=== PATIENT | male | born 1950 | race Caucasian/White ===

== ENCOUNTER 2018-12-16 10:39 | Inpatient (IN) | payer MEDICARE ==
[~2018-12-16] VITALS: Ht 172.7 cm; Wt 78.6 kg
[~2018-12-16 10:39] MED LIST: ASPI81EC; ASPI81EC PO; ATOR40TA PO; ATOR80 PO; BACL10 PO; CALCAVITDA PO; CALGLU500 PO; CARB200; CLOP75 PO; DOC250 PO; DOCU100; DOCU100 PO; FERR160 PO; FERR325; FERR325 PO; FURO40; FURO40 PO; HYDACE5; HYDACE5 PO; IBUP800; LISI5; LISI5 PO; LORA1 PO; MAGCHL64ER PO; MAGCIT300 PO; METO25ER; METO25ER PO; METO50ER PO; MULVITMINF; OMEP20ER; PHENO60 PO; POTA10T PO; POTA8; TRAZ100; WARF5; WARF7.5
[2018-12-16 11:13] LABS: Hematocrit 39.1 % (37.0-53.0); Hemoglobin 12.5 g/dL (13.5-17.5); Mean Corpuscular HGB 25.4 pg (26.0-34.0); Mean Corpuscular Volume 80 fL (80-100); Mean Platelet Volume 10.2 fL (9.1-12.4); Platelet Count 129 K/mm3 (150-400); RDW Coefficient Variation 16.2 % (11.7-14.2); RDW Standard Deviation 46.9 fL (35.1-46.3); Red Blood Cell Count 4.92 M/mm3 (4.30-5.90); White Blood Cell Count 4.19 K/mm3 (4.00-11.30)
[2018-12-16 11:27] LABS: International Normalized Ratio 1.59; Prothrombin Time Results 16.2 Sec (9.7-11.5)
[2018-12-16 11:28] LABS: Alanine Aminotransfer (ALT/SGP 23 U/L (12-78); Albumin, Blood 3.3 g/dL (3.4-5.0); Alk Phos 135 U/L (50-136); Anion Gap 4 mmol/L (6-16); Aspartate Aminotrans (AST/SGOT 21 U/L (12-37); Bilirubin, Total 0.3 mg/dL (0.1-1.0); Blood Urea Nitrogen 14 mg/dL (8-24); CHOL/HDL RATIO 4.3; CO2, Blood 28 mmol/L (21-32); Calcium, Blood 8.2 mg/dL (8.5-10.1); Chloride, Blood 107 mmol/L (98-108); Cholesterol 149 mg/dL (50-200); Globulin, Blood 3.2 g/dL (2.2-4.0); Glomerular Filtration Rate >60 (60-); Glucose, Blood 110 mg/dL (70-99); HDL Cholesterol 35 mg/dL (>39); LDL/HDL RATIO 2.2; Low Density Lipoprotein Chol 77 mg/dL (0-110); Magnesium, Blood 2.2 mg/dL (1.6-2.4); Sodium, Blood 139 mmol/L (136-145); Total Protein, Blood 6.5 g/dL (6.4-8.2); Triglycerides 187 mg/dL (30-160); Troponin I 0.029 ng/mL (0.000-0.040); Very Low Density Lipoprot Chol 37 mg/dL (6-32)
--- NOTE | 2018-12-16 13:09 | NUR ---
PATIENT ARRIVED TO ROOM ICU 6, AT 12:15 HOURS VIA BED FROM THE [facility] AFTER HEART CATHETERIZATION, NO STENTS PLACED, PATIENT WILL BE HERE UNTIL TOMORROW AND THEN TRANSFER TO [facility] PER DR. KIM, PATIENT HAS A HISTORY OF STROKE AND HIS LEFT SIDE IS PARALYZED, UNABLE TO MOVE ARM OR LEG ON LEFT, RIGHT GROIN SIDE HAS INCISION/PUNCTURE FROM HEART CATHETERIZATION, CHG TEGADERM COVERS THE SITE, SOFT, NONTENDER, NO HEMATOMA NOTED, PATIENT C/O ACHE AT THE SITE, BUT DENIES PAIN MEDICATION, PLACED ON MONITOR, HEPARIN DRIP WAS STARTED ORDERED, PATIENT IS AWAKE, ALERT AND ORIENTED, LUNG SOUNDS CLEAR, AFEBRILE, NSR, BOWEL TONES HYPOACTIVE, PATIENT HAD SOME SIPS OF WATER, NO PROBLEM SWALLOWING, PER DR. KIM MAY HAVE CARDIAC DIET, PATIENT TO LIE FLAT FOR 4 HOURS, PEDAL PULSES ARE PRESENT AND PALPABLE, FAMILY AT BEDSIDE, PATIENT AND FAMILY WERE ORIENTED TO ROOM AND NEW ENVIRONMENT, DR. KIM AT BEDSIDE TO SEE PATIENT AND SPEAK WITH FAMILY, CALL LIGHT IN REACH, WILL CONTINUE TO MONITOR.
--- NOTE | 2018-12-16 17:30 | NUR ---
SHIFT SUMMARY NOTE: PATIENT IS AWAKE AND ALERT AND ORIENTED, SITTING UP IN BED EATING DINNER, RIGHT GROIN SITE SHOWS NO BLEEDING, SOFT, NONTENDER TO PALPATION, COVERED WITH CHG TEGADERM, ANGIOSEAL IN PLACE, PATIENT CONTINUES ON HEPARIN GTT AT 13 UNITS AT THIS TIME, SLEPT MOST OF THE AFTERNOON, VSS, AFEBRILE, DENIES PAIN, PATIENT HAS A HISTORY OF STROKE AND HIS LEFT SIDE IS PARALYZED, PENDING TRANSFER TO [facility], FAMILY AT BEDSIDE, CALL LIGHT IN REACH, WILL CONTINUE TO MONITOR.
--- NOTE | 2018-12-16 20:31 | NUR ---
PT RESTING IN BED. A/O X4. DENIES CP, PAIN, PRESSURE, N/V, SOB, AND DIZZINESS. GOT PT TO SIDE OF BED TO VOID AND STOOD WITH 1 PERSON ASSIST. L SIDE IS PARALYZED FROM PREVIOUS STROKE. ALSO HAS FACIAL DROOP WELL. R GROIN ACCESS SITE IS STABLE, NO SIGN OF BLEEDING, SOFT AND NON TENDER. HAS CLEAR OCCLUSIVE DRESSING INTACT. HAS HEPARIN GTT RUNNING. EDUCATED ABOUT TOBACCO CESSATION. PT IS ASKING IF HIS FAMILY CAN BRING HIS CHEW IN. CONTINUE TO REINFORCE NO NICOTINE CONSUMPTION DUE TO CONDITION OF HIS VESSELS. PT STATES HE IS GOING TO CONTINUE USING TOBACCO WHEN HE LEAVES HERE. NO SIGN OF DISTRESS. CALL LIGHT IN REACH.
--- NOTE | 2018-12-17 06:46 | NUR ---
PT RESTING IN BED. A/O X4. NO CHANGES DURING THE NIGHT. CALL LIGHT IN REACH, NO SIGN OF DISTRESS.
--- NOTE | 2018-12-17 07:10 | NUR ---
START OF SHIFT NOTE: PATIENT IS AWAKE ALERT AND ORIENTED, NSR, LUNGS SOUNDS DIMINISHED THROUGHOUT, BT'S IN ALL FOUR QUADRANTS, USES URINAL APPROPRIATELY, LEFT SIDED PARALYSIS D/T HISTORY OF STROKE, AWAITING TRANSFER TO [facility] IN [place], [facility] INFURING AT 17 UNITS, MANAGED BY PHARMACY, CALL LIGHT IN REACH, WILL CONTINUE TO MONITOR.
--- NOTE | 2018-12-17 08:53 | NUR ---
PATIENT TOOK AM MEDICATION WITHOUT ANY PROBLEMS SWALLOWING, FAMILY AT BEDSIDE, CALL LIGHT IN REACH, WILL CONTINUE TO MONITOR.
--- NOTE | 2018-12-17 10:07 | NUR ---
REPORT CALLED TO KARIN ACUÑA, AT [facility], EMT'S WILL PROVIDE TRANSPORTATION FOR PATIENT, TO ARRIVE HERE IN ICU SHORTLY.
--- NOTE | 2018-12-17 10:55 | NUR ---
PATIENT LEFT TO [facility] VIA EMS AT 10:52.
== END 2018-12-17 10:52 | disposition short-term general hospital (02) | DRG 287 ==
LOC: ER 10:39 → ICUW 10:48 → ICUE 11:07
PROVIDERS: Emergency Medicine; ADMIT Internal Medicine Interventional Cardiology
PROC: B2111ZZ Fluoroscopy of Multiple Coronary Arteries using Low Osmolar Contrast (ICD-10-PCS; principal; 2018-12-16)
PROC: B2131ZZ Fluoroscopy of Multiple Coronary Artery Bypass Grafts using Low Osmolar Contrast (ICD-10-PCS; 2018-12-16)
PROC: B3101ZZ Fluoroscopy of Thoracic Aorta using Low Osmolar Contrast (ICD-10-PCS; 2018-12-16)
DX: I25.700 Atherosclerosis of coronary artery bypass graft(s), unspecified, with unstable angina pectoris (principal); E78.00 Pure hypercholesterolemia, unspecified; Z95.5 Presence of coronary angioplasty implant and graft; Z72.3 Lack of physical exercise; Z87.891 Personal history of nicotine dependence
CPT/HCPCS: 36415; 80053; 80061; 83735; 84484; 85027; 85347; 85610; 85730; 86850; 86900; 86901; 93005; 93010; 93455; 96374; 96375; 99152; 99153; 99285-25; C1760; C1769; C1894; J1200; J1644; J1720; J2250; J3010; J3490; J7030; Q9967

== ENCOUNTER 2019-03-23 20:35 | Emergency (ER) | payer OTHER, MEDICARE ==
[~2019-03-23] VITALS: Ht 172.7 cm; Wt 80.3 kg
[2019-03-23 20:55] LABS: BASOPHILS ABSOLUTE AUTO 0.07 K/mm3 (0.00-0.23); BASOPHILS PERCENT AUTO 1 % (0-2); EOSINOPHILS ABSOLUTE AUTO 0.27 K/mm3 (0.00-0.68); EOSINOPHILS PERCENT AUTO 5 % (0-6); Hematocrit 35.8 % (37.0-53.0); Hemoglobin 11.2 g/dL (13.5-17.5); IMMATURE GRAN ABSOLUTE AUTO 0.02 K/mm3 (0.00-0.10); IMMATURE GRAN PERCENT AUTO 0 % (0-1); LYMPHOCYTES ABSOLUTE AUTO 0.96 K/mm3 (0.84-5.20); LYMPHOCYTES PERCENT AUTO 16 % (21-46); MONOCYTES ABSOLUTE AUTO 0.51 K/mm3 (0.16-1.47); MONOCYTES PERCENT AUTO 9 % (4-13); Mean Corpuscular HGB Conc 31.3 g/dL (31.5-36.5); Mean Corpuscular Volume 77 fL (80-100); Mean Platelet Volume 10.1 fL (9.1-12.4); NEUTROPHILS ABSOLUTE AUTO 4.03 K/mm3 (1.96-9.15); NEUTROPHILS PERCENT AUTO 69 % (41-73); Platelet Count 158 K/mm3 (150-400); RDW Coefficient Variation 15.9 % (11.7-14.2); Red Blood Cell Count 4.66 M/mm3 (4.30-5.90); White Blood Cell Count 5.86 K/mm3 (4.00-11.30)
[2019-03-23] MEDS ORDERED: Isosorbide Mono30 MG PO (20:55)
[2019-03-23] MEDS ORDERED: MAGNESIUM PO (20:56)
[2019-03-23] MEDS ORDERED: WARF1 PO (21:00)
[2019-03-23] MEDS ORDERED: LORA.5 PO (21:03)
[2019-03-23 21:13] LABS: Anion Gap 7 mmol/L (6-16); Blood Urea Nitrogen 10 mg/dL (8-24); Bun/Creatinine Ratio 9.9 (12.0-20.0); CO2, Blood 25 mmol/L (21-32); Calcium, Blood 8.4 mg/dL (8.5-10.1); Chloride, Blood 105 mmol/L (98-108); Creatinine, Blood 1.01 mg/dL (0.60-1.20); Glomerular Filtration Rate >60 (60-); Glucose, Blood 104 mg/dL (70-99); Potassium, Blood 4.2 mmol/L (3.5-5.5); Sodium, Blood 137 mmol/L (136-145); Troponin I <0.015 ng/mL (0.000-0.040)
== END 2019-03-23 22:22 | disposition home or self-care (01) ==
LOC: ER 20:35
PROVIDERS: Emergency Medicine
DX: F41.9 Anxiety disorder, unspecified (principal); R07.89 Other chest pain; Z86.73 Personal history of transient ischemic attack (TIA), and cerebral infarction without residual deficits; I25.10 Atherosclerotic heart disease of native coronary artery without angina pectoris; Z91.041 Radiographic dye allergy status; Z88.8 Allergy status to other drugs, medicaments and biological substances; Z79.899 Other long term (current) drug therapy; Z79.01 Long term (current) use of anticoagulants; I10 Essential (primary) hypertension; I25.2 Old myocardial infarction; E78.00 Pure hypercholesterolemia, unspecified; Z87.891 Personal history of nicotine dependence
CPT/HCPCS: 36415; 80048; 84484; 85025; 93005; 93010; 99285-25

== ENCOUNTER 2019-08-23 22:56 | Emergency (ER) | payer OTHER, MEDICARE ==
[~2019-08-23] VITALS: Ht 172.7 cm; Wt 79.8 kg
[~2019-08-23 22:56] MED LIST changes: +CALCIUM PO; +Isosorbide Mono30 MG PO; +LORA.5 PO; +MAGNESIUM PO; +WARF1 PO
[2019-08-24] MEDS ORDERED: DOC250 PO (00:31)
[2019-08-24] MEDS ORDERED: METO25ER PO (00:32)
[2019-08-24] MEDS ORDERED: ELIQUIS5 MG PO (00:35)
== END 2019-08-24 00:47 | disposition home or self-care (01) ==
LOC: ER 22:56
DX: T14.8XXA Other injury of unspecified body region, initial encounter (principal); M54.6 Pain in thoracic spine; I10 Essential (primary) hypertension; I25.2 Old myocardial infarction; Z91.041 Radiographic dye allergy status; Z88.8 Allergy status to other drugs, medicaments and biological substances; Z79.899 Other long term (current) drug therapy; Z79.01 Long term (current) use of anticoagulants; Z86.73 Personal history of transient ischemic attack (TIA), and cerebral infarction without residual deficits; Z87.891 Personal history of nicotine dependence; W01.0XXA Fall on same level from slipping, tripping and stumbling without subsequent striking against object, initial encounter
CPT/HCPCS: 70450; 71101; 99284-25

== ENCOUNTER 2020-05-07 15:24 | Emergency (ER) | payer OTHER, MEDICARE ==
[~2020-05-07] VITALS: Ht 172.7 cm; Wt 81.7 kg
[~2020-05-07 15:24] MED LIST changes: +CLOP75; +ELIQUIS5 MG PO; +Norco 5-325 Ta1 EACH PO; +OXYACE7.5T PO
[2020-05-07] MEDS ORDERED: ONDA4ODT MM (16:33)
== END 2020-05-07 16:40 | disposition home or self-care (01) ==
LOC: ER 15:24
DX: S06.9X9A Unspecified intracranial injury with loss of consciousness of unspecified duration, initial encounter (principal); S16.1XXA Strain of muscle, fascia and tendon at neck level, initial encounter; I25.2 Old myocardial infarction; I10 Essential (primary) hypertension; E78.5 Hyperlipidemia, unspecified; Z91.040 Latex allergy status; Z88.8 Allergy status to other drugs, medicaments and biological substances; Z79.899 Other long term (current) drug therapy; Z79.02 Long term (current) use of antithrombotics/antiplatelets; Z86.73 Personal history of transient ischemic attack (TIA), and cerebral infarction without residual deficits; Z95.1 Presence of aortocoronary bypass graft; W17.89XA Other fall from one level to another, initial encounter
CPT/HCPCS: 70450; 72125; 99284-25; L0160

== ENCOUNTER 2022-12-23 10:28 | Day surgery (SDC) | payer OTHER ==
[~2022-12-23] VITALS: Ht 170.2 cm; Wt 90.5 kg
[2022-12-23] VITALS (12 sets, daily range): BP systolic 94–170; BP diastolic 45–94
[~2022-12-23 10:28] MED LIST changes: +B-12500 MC2 PO; -CLOP75; +CYCL10 PO; +ONDA4ODT MM
[2022-12-23] MEDS ORDERED: METO50 PO (11:26)
[2022-12-23] MEDS ORDERED: WARF5 PO (11:29)
[2022-12-23 11:36] LABS: International Normalized Ratio 0.98; Prothrombin Time Results 10.3 Sec (9.7-11.5)
[2022-12-23] MEDS ORDERED: ENOX80I SC (12:47)
--- NOTE | 2022-12-23 13:06 | NUR ---
REMOVED LOVENOX FROM ALLERGY LIST. PATIENT CURRENTLY TAKING LOVENOX PER DR ORDER AND DENIES ALLERGY OR ADVERSE REACTION.
--- NOTE | 2022-12-23 13:48 | NUR ---
HEARING AIDS LEFT AT HOME PER PATIENT. GLASSES STORED IN PATIENT'S PERSONAL BELONGING BAG PER PATIENT.
--- NOTE | 2022-12-23 19:36 | NUR ---
SHIFT SUMMARY PATIENT IS POST-OP DAY 0 OF A LEFT TOTAL KNEE. PATIENT HAS TWO AQUACEL DRESSINGS ON LEFT KNEE/LEG THAT ARE CLEAN DRY INTACT. PATIENT WANTED TO STAND TO VOID BUT WAS UNABLE TO, REPORTED TO CORPORATE AIRCRAFT MECHANIC NURSE. PATIENT TOLERATED JELLO AND CRACKERS WELL. PATIENT DENIED NAUSEA. FAMILY VISITED THROUGHOUT THE DAY. PATIENT IS CURRENTLY LYING IN BED WATCHING TV. CALL LIGHT WITHIN REACH, BED IN LOWEST POSITION.
--- NOTE | 2022-12-23 19:42 | NUR ---
REVIEWED SN DOCUMENTATION.
[2022-12-24 02:11] VITALS: BP 127/57
[2022-12-24 05:49] LABS: BASOPHILS ABSOLUTE AUTO 0.07 K/mm3 (0.00-0.23); BASOPHILS PERCENT AUTO 1 % (0-2); EOSINOPHILS ABSOLUTE AUTO 0.32 K/mm3 (0.00-0.68); EOSINOPHILS PERCENT AUTO 3 % (0-6); Hematocrit 37.6 % (37.0-53.0); IMMATURE GRAN ABSOLUTE AUTO 0.05 K/mm3 (0.00-0.10); IMMATURE GRAN PERCENT AUTO 1 % (0-1); LYMPHOCYTES ABSOLUTE AUTO 0.93 K/mm3 (0.84-5.20); LYMPHOCYTES PERCENT AUTO 10 % (21-46); MONOCYTES ABSOLUTE AUTO 0.78 K/mm3 (0.16-1.47); MONOCYTES PERCENT AUTO 8 % (4-13); Mean Corpuscular HGB 28.5 pg (26.0-34.0); Mean Corpuscular HGB Conc 34.6 g/dL (31.5-36.5); Mean Corpuscular Volume 83 fL (80-100); Mean Platelet Volume 9.3 fL (9.1-12.4); NEUTROPHILS ABSOLUTE AUTO 7.28 K/mm3 (1.96-9.15); NEUTROPHILS PERCENT AUTO 77 % (41-73); Platelet Count 175 K/mm3 (150-400); RDW Coefficient Variation 14.9 % (11.7-14.2); RDW Standard Deviation 45.1 fL (35.1-46.3); Red Blood Cell Count 4.56 M/mm3 (4.30-5.90); White Blood Cell Count 9.43 K/mm3 (4.00-11.30)
--- NOTE | 2022-12-24 05:51 | NUR ---
SHIFT SUMMARY PT IS NOW POST OP DAY 1 W/ HIS TOTAL LEFT KNEE SURGERY ON 12/23/22. HE HAS A HX OF CVA AND HAS A LEFT SIDED DEFICIT. HE HAS MINIMAL MOVEMENT ON HIS LEFT SIDE AND HIS LEFT HAND IS CONTRACTED. HE STATES AT BASELINE HE DOES NOT HAVE FEELING IN HIS LEFT LEG. CAP REFILL IS <3 SEC AND DISTAL PULSES FROM THE SURGERY SITE ARE PALATABLE. HE HAS HAD Q4 FOCUSED ASSESSMENTS AND THE SITE REMAINS W/O ANY BLEEDING, HEMATOMA, SWELLING, OR REDNESS. THERE IS AN AQUACEL DRESSING INTACT AND DRY. HE HAD TO BE MEDICATED A FEW TIMES THIS SHIFT FOR THROBBING 5/10 PAIN. TORADOL AND TYLENOL HAVE BEEN VERY EFFECTIVE FOR THE PT S PAIN. HE HAS BEEN ABLE TO VOID A FEW TIMES THIS SHIFT AND USES THE URINAL AT BEDSIDE. HE HAS BEEN UP NEARLY THE ENTIRE NIGHT BUT HAS NO OTHER COMPLAINTS. BED IS IN LOW, AND CALL LIGHT IS IN REACH. SEE NOTES FOR ANY UPDATES.
[2022-12-24 05:53] LABS: Bun/Creatinine Ratio 12.9 (12.0-20.0); Calcium, Blood 8.3 mg/dL (8.5-10.1); Creatinine, Blood 1.01 mg/dL (0.60-1.20); Potassium, Blood 3.9 mmol/L (3.5-5.5)
[2022-12-24 07:37] VITALS: BP 162/58
--- NOTE | 2022-12-24 10:59 | NUR ---
Pt. is awake in bed and welcomes my visit. Pt. is pleasant, but was a little unsettled by world events after watching the news. Listen with empathy and a calming presence. Pt. verbalized interest in his physical therapy. Normalized the Pt. experience and established rapport. Pt. displayed evidence of trust and a less anxious spirit. Prayed with Pt. Pt. verbalized gratitude for the spiritual care visit.
[2022-12-24] MEDS ORDERED: ENOX80I SC (15:15)
--- NOTE | 2022-12-24 15:43 | NUR ---
DISCHARGE SUMMARY PT A&OX4, VSS/RA, RAHEEM PO, VOIDING WELL, STAND PIVOT WITH HEMIWALKER ( BOUGHT A HEMIWALKER), PAIN MANAGED, IV DC'D. DC INS PROVIDED. PT REP UNDERSTANDING THOSE INSTRUCTIONS INCLUDING FU WITH PCP RE COUMADIN LEVELS (LAB ORDERED FOR 12/26) AND LOVENOX BID (PER [facility]) TILL THERAPEUTIC; PER SULAIMAN @ [facility]: NO CPM IN AREA. HOME HEALTH W/PT BEING ORDERED TODAY BY [facility]. PER RAVEN @ [facility]: NARCOTIC SCRIPT [facility] TO [facility] BY DR DOLAN. LEFT FLOOR VIA WC WITH CADD DRAFTER TO GO HOME WITH , WITH ALL PERSONAL POSSESSIONS INCLUDING DC PACKET, POLAR LOBO, AQUACEL DRESSINGS.
== END 2022-12-24 15:49 | disposition home health service (06) ==
LOC: ORSCMMR 10:28 → ORD 10:30 → ORSCMMR 10:45 → ORD 13:30 → SURS 16:41 → ORSCMMR 12-24 15:49
PROVIDERS: Orthopaedic Surgery
PROC: 8E0Y0CZ Robotic Assisted Procedure of Lower Extremity, Open Approach (ICD-10-PCS; principal; 2022-12-23 13:30)
PROC: 0SRD0JA Replacement of Left Knee Joint with Synthetic Substitute, Uncemented, Open Approach (ICD-10-PCS; principal; 2022-12-23 13:30)
DX: M17.0 Bilateral primary osteoarthritis of knee (principal); Z86.73 Personal history of transient ischemic attack (TIA), and cerebral infarction without residual deficits; Z87.891 Personal history of nicotine dependence; I10 Essential (primary) hypertension; I25.2 Old myocardial infarction; Z79.899 Other long term (current) drug therapy
CPT/HCPCS: 27447; 20985; S2900; 36415; 73560-LT; 80048; 83735; 85025; 85610; 85730; 94760; 97110; 97162; 97530; A9270; C1776; J0171; J0690; J0735; J1100; J1650; J1885; J2250; J2370; J2405; J2704; J2795; J3010; J7120

== ENCOUNTER 2024-05-24 12:21 | Inpatient (IN) | payer OTHER ==
[2024-05-24] VITALS (10 sets, daily range): BP systolic 93–159; BP diastolic 66–99
[~2024-05-24] VITALS: Ht 175.3 cm; Wt 93.2 kg
[~2024-05-24 12:21] MED LIST changes: +ENOX80I SC; +METO50 PO; +WARF5 PO
[2024-05-24] MEDS ORDERED: PredniSONE 20 MG Tab PO ONE (12:55)
[2024-05-24] MEDS ORDERED: Albuterol 2.5 MG/3 ML VIAL INH SCH (12:55)
[2024-05-24] MEDS ORDERED: Ipratropium/Albuterol SulF 2.5-0.5MG/3 ML Amp INH ONE (12:55)
[2024-05-24] MEDS ORDERED: Magnesium Sulf 2 GM/Water 50ML 50 ML IV ONE (13:00)
[2024-05-24 13:11] LABS: BASOPHILS ABSOLUTE AUTO 0.09 K/mm3 (0.00-0.23); BASOPHILS PERCENT AUTO 1 % (0-2); EOSINOPHILS ABSOLUTE AUTO 0.58 K/mm3 (0.00-0.68); EOSINOPHILS PERCENT AUTO 8 % (0-6); Hematocrit 39.3 % (37.0-53.0); IMMATURE GRAN ABSOLUTE AUTO 0.03 K/mm3 (0.00-0.10); IMMATURE GRAN PERCENT AUTO 0 % (0-1); LYMPHOCYTES ABSOLUTE AUTO 0.78 K/mm3 (0.84-5.20); LYMPHOCYTES PERCENT AUTO 11 % (21-46); MONOCYTES ABSOLUTE AUTO 0.53 K/mm3 (0.16-1.47); MONOCYTES PERCENT AUTO 7 % (4-13); Mean Corpuscular HGB 29.3 pg (26.0-34.0); Mean Corpuscular HGB Conc 35.6 g/dL (31.5-36.5); Mean Corpuscular Volume 82 fL (80-100); Mean Platelet Volume 10.7 fL (9.1-12.4); NEUTROPHILS ABSOLUTE AUTO 5.13 K/mm3 (1.96-9.15); NEUTROPHILS PERCENT AUTO 72 % (41-73); Platelet Count 165 K/mm3 (150-400); RDW Coefficient Variation 15.9 % (11.7-14.2); RDW Standard Deviation 47.8 fL (35.1-46.3); Red Blood Cell Count 4.78 M/mm3 (4.30-5.90); White Blood Cell Count 7.14 K/mm3 (4.00-11.30)
[2024-05-24 13:19] LABS: Albumin, Blood 3.2 g/dL (3.4-5.0); Albumin/Globulin Ratio 0.9 (0.8-1.8); Bilirubin, Total 0.5 mg/dL (0.1-1.0); Calcium, Blood 8.7 mg/dL (8.5-10.1); Creatinine, Blood 0.93 mg/dL (0.60-1.20); Globulin, Blood 3.7 g/dL (2.2-4.0); Total Protein, Blood 6.9 g/dL (6.4-8.2)
[2024-05-24] MEDS ORDERED: ALBU90OI INH (13:19)
[2024-05-24] MEDS ORDERED: EZET10 PO (13:20)
[2024-05-24] MEDS ORDERED: IPRAT-ALBUT 0.5-3 ML IH (13:20)
[2024-05-24] MEDS ORDERED: Insulin Regular 100 Unit/ML 1ML Dose IV ONE (13:25)
[2024-05-24] MEDS ORDERED: NITR.4SL SL (13:30)
[2024-05-24] MEDS ORDERED: PHENO30 PO (13:31)
[2024-05-24] MEDS ORDERED: NS 1,000 ML IV SCH (14:15)
[2024-05-24] MEDS ORDERED: Insulin Human Regular 100 UNIT in NS 100 ML IV SCH (14:20)
[2024-05-24 14:45] LABS: International Normalized Ratio 2.99; Prothrombin Time Results 29.5 Sec (9.7-11.5)
[2024-05-24] MEDS ORDERED: Acetaminophen 325 MG TABLET PO PRN (14:55)
[2024-05-24] MEDS ORDERED: Ipratropium/Albuterol SulF 2.5-0.5MG/3 ML Amp INH SCH (14:55)
[2024-05-24] MEDS ORDERED: FLU VACC TS2024-25(6MOS UP)/PF 45 MCG/0.5 ML SYRINGE IM SCH (14:55)
[2024-05-24] MEDS ORDERED: Ondansetron HCl 2 MG / ML 2ML Vial IV PRN (15:00)
[2024-05-24] MEDS ORDERED: Dextrose 50% 50 ML Syringe IV PRN (15:00)
[2024-05-24] MEDS ORDERED: Nitroglycerin 0.4 MG SUBL SL PRN (15:05)
[2024-05-24 15:15] LABS: Glucose, Blood 601 mg/dL (70-99)
--- NOTE | 2024-05-24 17:39 | NUR ---
ARRIVAL TO ICU/SHIFT SUMMARY PT ARRIVES TO ICU FROM ER FOR HYPERGLYCEMIA AT 1615. REPORT FROM SHANTHI FRAZIER. PT ARRIVES c INSULIN GTT AND IVF INFUSING. PT A&OX 4. FOLLOWS COMMANDS. ABLE TO MAKE NEEDS KNOWN. REPORTS FALL LAST NOC, STATES HE HAS BEEN UNABLE TO WALK SINCE THEN D/T WEAKNESS. TYPICALLY AMB c CANE OR WALKER. PT HAS PREVIOUS CVAS c LEFT SIDED DEFICIT. PUREWICK IN PLACE D/T FREQUENT URINATION. PIV X 2. WILL CONTINUE PLAN OF CARE UNTIL REPORT TO ONCOMING NURSE.
[2024-05-24] MEDS ORDERED: CYCL10 PO (17:56)
[2024-05-24 19:35] LABS: Bun/Creatinine Ratio 15.4 (12.0-20.0); Calcium, Blood 8.5 mg/dL (8.5-10.1); Creatinine, Blood 0.84 mg/dL (0.60-1.20); Potassium, Blood 3.5 mmol/L (3.5-5.5)
[2024-05-24] MEDS ORDERED: PHENobarbital 64.8 MG Tab PO SCH (21:00)
[2024-05-24] MEDS ORDERED: Metoprolol Tartrate 50 MG Tab PO SCH (21:00)
[2024-05-24] MEDS ORDERED: Docusate Sodium 100 MG Cap PO SCH (21:00)
--- NOTE | 2024-05-24 22:28 | NUR ---
ASSUMPTION OF CARE PT LYING IN BED IN NO APPARENT DISTRESS, ALERT AND ORIENTEED TO ALL. HR NSR IN THE 90S WITH STABLE BLOOD PRESSURE. BREATHING IS WITHOUT EXTRA EFFORT, SAT 95% ON RA. NO CHEST PAIN OR ACUTE SOB. PT SAYS HE HAS HAD INTERMITTENT SOB OVER LAST MONTH. LUNGS CLEAR BUT DIMINISHED IN BASES. NO ABDOMINAL PAIN. PERIWICK IN PLACE FAILED DURING ASSESSMENT AND WAS REMOVED. PT SAYS HE SHOULD BE ABLE TO USE CALL LIGHT. INSULING INFUSING AT 6 UNITS/HR WITH Q 1 HOUR POC CHECKS PLANNED. NORMAL SALINE INFUSING AT 75 ML/HR. PT CLEANED UP AND NEW LINENS APPLIED. PT LEFT IN ROOM WITH CALL LIGHT NEARBY.
[2024-05-24] MEDS ORDERED: Insulin Glargine-Yfgn 100 Unit/mL 3 ML SYR SC STA (22:51)
[2024-05-25] VITALS (14 sets, daily range): BP systolic 94–157; BP diastolic 46–74
[2024-05-25 04:02] LABS: Calcium, Blood 8.5 mg/dL (8.5-10.1); Creatinine, Blood 0.83 mg/dL (0.60-1.20); Potassium, Blood 2.8 mmol/L (3.5-5.5)
[2024-05-25] MEDS ORDERED: Potassium Chloride 40 MEQ IV ONE (05:55)
[2024-05-25] MEDS ORDERED: Potassium Chl 20MEQ/Water100ML 100 ML IV SCH (06:05)
[2024-05-25] MEDS ORDERED: NS 250 ML IV PRN (07:25)
[2024-05-25] MEDS ORDERED: Insulin Human Lispro 100 Units/ML 3ML Syringe SC SCH (07:30)
--- NOTE | 2024-05-25 07:35 | NUR ---
SHIFT SUMMARY PT LYING IN BED IN NO APPARENT DISTRESS, ALERT AND ORIENTED TO ALL. HR NSR/SINUS TACH VS IRREGULAR IN THE 90S TO LOW 100S WITH STABLE BLOOD PRESSURE. BREATHING IS WITHOUT EXTRA EFFORT, SAT 95% ON RA. NO CHEST PAIN OR ACUTE SOB. LUNGS CLEAR BUT DIMINISHED IN BASES- LESS SO THAN BEGINNING OF SHIFT. NO ABDOMINAL PAIN. PT HAS BEEN ABLE TO USE CALL LIGHT. INSULIN INFUSION OFF AT 0345 WITH 10 UNITS OF LONG ACTING GIVEN BEFORE MIDNIGHT. POTASSIUM CHLORIDE INFUSING AT SLOWER RATE INTO RIGHT WRIST- AM POTASSIUM 2.8. PT LEFT IN ROOM WITH CALL LIGHT NEARBY AND DAUGHTER IN ROOM.
[2024-05-25] MEDS ORDERED: Clopidogrel Bisulfate 75 MG Tab PO SCH (09:00)
[2024-05-25] MEDS ORDERED: Atorvastatin 40 MG Tab PO SCH (09:00)
[2024-05-25] MEDS ORDERED: Ezetimibe 10 MG Tab PO SCH (09:00)
[2024-05-25] MEDS ORDERED: Metoprolol Succinate 50 MG TABCR PO SCH ×2 (09:00→21:00)
[2024-05-25] MEDS ORDERED: Cyanocobalamin 500 MCG Tab PO SCH (09:00)
[2024-05-25] MEDS ORDERED: Sacubitril/Valsartan 24 MG-26 MG Tab PO SCH (09:00)
[2024-05-25] MEDS ORDERED: Empagliflozin 10 MG TAB PO SCH (09:00)
[2024-05-25] MEDS ORDERED: Furosemide 20 MG Tab PO SCH (09:00)
[2024-05-25] MEDS ORDERED: PHENobarbital 64.8 MG Tab PO SCH (09:00)
[2024-05-25] MEDS ORDERED: Isosorbide Mononitrate 30 MG TABCR PO SCH (09:00)
[2024-05-25] MEDS ORDERED: Potassium Chloride 20 MEQ TabCR PO ONE (09:10)
[2024-05-25] MEDS ORDERED: Insulin NPH 100 Unit / ML 10ML Vial SC ONE (10:10)
--- NOTE | 2024-05-25 10:29 | NUR ---
pt. is awake in bed and welcomed my visit. Spouse is at bedside. Both are pleasant. Faciliated a life review. Pt. verbalized about how he and his spouse met as children at [facility], and how he had served in the [employer] in [employer]. Listen with honor, interest and empathy. Pt. displayed evidence of trust, engagement and awareness. Both Pt. and are pleasant. prayed with the Pt. Pt. and spouse both werbalize d graititude for the spiritual care visit.
[2024-05-25] MEDS ORDERED: Metoprolol Tartrate 25 MG Tab PO ONE (12:45)
[2024-05-25] MEDS ORDERED: Warfarin Sodium 5 MG Tab PO ONE (18:00)
--- NOTE | 2024-05-25 18:38 | NUR ---
SHIFT SUMMARY/TRANSFER TO MEDICAL FLOOR PT HAS ALERT AND ORIENTED T/O SHIFT, HE HAS BEEN APPROPRIATE AND ABLE TO ANSWER QUESTIONS AND FOLLOW COMMANDS APPROPRIATELY. HIS SPO2 IS >96% ON ROOM AIR. HIS SYSTOLIC BP HAS BEEN >120 W/ MAP >70. PT HAS RIGHT UPPER ARM PIV THAT FLUSHES AND DRAWS WELL. PT HAS LEFT ARM WEAKNESS AND LEFT LEG WEAKNESS. HE HAS NEW HYPEREXTENSION OF HIS LEFT KNEE WHEN STANDING AND WILL GET CAT SCAN IN THE AM. HE IS ON BEDREST W/ STRICT ORDERS NOT TO BEAR WEIGHT ON L-KNEE. REPORT GIVEN TO NURSE FOR ROOM 337.
[2024-05-25 18:41] LABS: International Normalized Ratio 3.03; Prothrombin Time Results 29.9 Sec (9.7-11.5)
[2024-05-25] MEDS ORDERED: Insulin Glargine-Yfgn 100 Unit/mL 3 ML SYR SC SCH ×2 (21:00)
[2024-05-25] MEDS ORDERED: Cyclobenzaprine HCl 10 MG Tab PO SCH (21:00)
--- NOTE | 2024-05-26 04:27 | NUR ---
SHIFT SUMMARY PT HAD CT ARRIVE AND TRANSFER FOR IMAGING. AWAITING RESULTS AT THIS TIME. PT HAS LEFT SIDED DEFECIT FROM OLD CVA. POSSIBLE SURGICAL CONSULT THIS AM. PT HAS BEEN STABLE AND HAS BEEN PLEASANT AND COOPERATIVE WITH CARE. SLEEPING CURRENTLY. WILL CONTINUE TO MONITOR.
[2024-05-26 04:43] VITALS: BP 122/58
[2024-05-26 05:57] LABS: International Normalized Ratio 2.48
[2024-05-26 06:20] LABS: Bun/Creatinine Ratio 16.1 (12.0-20.0); Creatinine, Blood 0.81 mg/dL (0.60-1.20)
[2024-05-26 06:30] LABS: Prothrombin Time Results 24.8 Sec (9.7-11.5)
--- NOTE | 2024-05-26 06:38 | NUR ---
PT/INR CALL FROM HEMATOLOGY @ 0660 PT DOWN FROM 29.9 TO 24.8 INR DOWN FROM 3.03 TO 2.48
[2024-05-26 07:39] VITALS: BP 134/64
[2024-05-26] MEDS ORDERED: Metoprolol Succinate 50 MG TABCR PO SCH (09:00)
[2024-05-26] MEDS ORDERED: Insulin Human Lispro 100 Units/ML 3ML Syringe SC SCH ×2 (09:10→17:30)
[2024-05-26] MEDS ORDERED: Furosemide 40 MG Tab PO SCH (11:50)
--- NOTE | 2024-05-26 11:58 | NUR ---
Pt. is awake in bed when he welcomed this chemical production machine operator. Pt. verbalized that he recalled me from a previous visit. Pt. is Pleasant, but displayed frustration because he "can't walk". Listen with empathy and a calm and encouraging presence. Considered matters of mikayla and belief. Pt. displayed evidence of wanting to chat for a much longer period of time. Prayed with the Pt. Pt. verbalized gratitude for the spiritual care visit and welcomed this chemical production machine operator to return.
[2024-05-26 15:03] VITALS: BP 137/67
[2024-05-26] MEDS ORDERED: METO50ER PO (17:25)
[2024-05-26] MEDS ORDERED: Warfarin Sodium 5 MG Tab PO SCH (18:00)
--- NOTE | 2024-05-26 18:30 | NUR ---
Pt A&Ox4, VSS, RA, expiratory wheezes, ST108 with PVC's on tele. Dr. Rich, ortho consulted and pt does not need surgery at this time, knee imobilizer ordered to be used with out of bed, diet ordered, tolerating food and drink well. HX CVA with left sided deficits, no movement or sensation in right arm, left leg weak. Worked with PT ambulated in room with imobilizer, gait belt and cane. Good urine output with urinal in reach. Blood glucose remains in 200s, medium sliding scale given. Family at bedside, participating in care.
[2024-05-26 19:37] VITALS: BP 126/66
[2024-05-26] MEDS ORDERED: Insulin Glargine-Yfgn 100 Unit/mL 3 ML SYR SC SCH ×2 (21:00)
[2024-05-27 03:43] VITALS: BP 114/69
--- NOTE | 2024-05-27 05:17 | NUR ---
SHIFT SUMMARY NOC PT A/O X 4. PLEASANT AND COOPERATIVE WITH CARE. VSS. NO ACUTE EVENTS TO REPORT. PT HS CBG 189 WITH SHORT ACTING CNI. 25 UNITS SCHEDULED LONG ACTING GIVEN. ON 2L/NC FOR SLEEPING. ON TELE SINUS RHYTHM IN 80'S. PT HAS LLE IMMOBILIZER BRACE FOR AMBULATING DUE TO HYPEREXTENSION OF L KNEE. PT WILL FOLLOW UP WITH DR DOLAN POST DISCHARGE WHICH COULD BE TODAY. PT LA FLACCID FROM PRIOR CVA IN 1998, PT USES RA TO MANIPULATE LA. PT CURRENTLY RESTING WITH BED IN LOWEST POSITION, AND CALL LIGHT WITHIN REACH.
[2024-05-27 05:34] LABS: Hematocrit 41.1 % (37.0-53.0); Hemoglobin 14.3 g/dL (13.5-17.5); Mean Corpuscular HGB 29.2 pg (26.0-34.0); Mean Corpuscular HGB Conc 34.8 g/dL (31.5-36.5); Mean Corpuscular Volume 84 fL (80-100); Mean Platelet Volume 10.5 fL (9.1-12.4); Platelet Count 178 K/mm3 (150-400); RDW Coefficient Variation 16.9 % (11.7-14.2); RDW Standard Deviation 51.8 fL (35.1-46.3); Red Blood Cell Count 4.89 M/mm3 (4.30-5.90); White Blood Cell Count 8.56 K/mm3 (4.00-11.30)
[2024-05-27 05:52] LABS: International Normalized Ratio 2.07
[2024-05-27 06:45] LABS: Bun/Creatinine Ratio 16.2 (12.0-20.0); Calcium, Blood 9.1 mg/dL (8.5-10.1); Creatinine, Blood 1.05 mg/dL (0.60-1.20); Potassium, Blood 4.2 mmol/L (3.5-5.5)
[2024-05-27 07:44] VITALS: BP 132/61
[2024-05-27] MEDS ORDERED: ENTRESTO 24 MG1 EACH PO (14:03)
[2024-05-27] MEDS ORDERED: SPIRIVA RESPIMAT4 G3 INH (14:05)
--- NOTE | 2024-05-27 14:59 | NUR ---
DISCHARGE PT DISCHARGED HOME WITH HOME HEALTH WITH AND DAUGHTER VIA WHEELCHAIR TO PRIVATE VEHICLE. ALL BELONGINGS SENT WITH PT FAMILY. EDUCATION PROVIDED ON MEDICATIONS AND FOLLOW UP. ALL QUESTIONS ANSWERED.
[2024-05-27] MEDS ORDERED: Warfarin Sodium 7.5 MG Tab PO ONE (18:00)
[2024-05-28 20:40] LABS: SERUM, C-PEPTIDE 6.6 ng/mL (0.5-3.3)
== END 2024-05-27 14:49 | disposition home health service (06) | DRG 638 ==
LOC: ER 12:21 → ICUE 14:53 → MEDS 14:53 → ICUE 15:58 → MEDS 05-25 18:49
PROVIDERS: Student in an Organized Health Care Education/Training Program; ADMIT Internal Medicine
DX: E11.65 Type 2 diabetes mellitus with hyperglycemia (principal); I48.92 Unspecified atrial flutter; I50.22 Chronic systolic (congestive) heart failure; J44.1 Chronic obstructive pulmonary disease with (acute) exacerbation; I69.954 Hemiplegia and hemiparesis following unspecified cerebrovascular disease affecting left non-dominant side; M17.9 Osteoarthritis of knee, unspecified; I25.10 Atherosclerotic heart disease of native coronary artery without angina pectoris; M25.362 Other instability, left knee; I11.0 Hypertensive heart disease with heart failure; I48.91 Unspecified atrial fibrillation; S70.01XA Contusion of right hip, initial encounter; R94.31 Abnormal electrocardiogram [ECG] [EKG]; Z95.5 Presence of coronary angioplasty implant and graft; F43.10 Post-traumatic stress disorder, unspecified; W18.30XA Fall on same level, unspecified, initial encounter; Z91.041 Radiographic dye allergy status; Z79.899 Other long term (current) drug therapy; Z79.02 Long term (current) use of antithrombotics/antiplatelets; Z79.01 Long term (current) use of anticoagulants; I25.2 Old myocardial infarction; Z98.890 Other specified postprocedural states; Z88.8 Allergy status to other drugs, medicaments and biological substances
CPT/HCPCS: 36415; 70450; 71046; 72125; 73502; 73560-LT; 73700; 80048; 80053; 82947; 83036; 83735; 84132; 85025; 85027; 85610; 93005; 93010; 94640; 94644; 94664; 94760; 94762; 96374; 97116; 97162; 97530; 99285-25; A9270; J1815; J3475; J3480; J7030; J7050; J7512